=== PATIENT | male | born 1960 | race Caucasian/White ===

== ENCOUNTER 2019-05-13 20:25 | Emergency (ER) | payer OTHER ==
--- NOTE | 2019-05-13 21:01 | EDM.PDOC ---
ED HPI GENERAL MEDICAL PROBLEM - General Chief Complaint: Headache Stated Complaint: MIGRAINES Time Seen by Provider: 05/13/19 20:28 Source of Information: Reports: Patient History Limitations: Reports: No Limitations - History of Present Illness INITIAL COMMENTS - FREE TEXT/NARRATIVE: Hx of cluster headaches Coming off his narcotic medications His neurologist recommends high flow O2 He took two sumatriptan today and imitrex Onset: Today Headache Pain Score (Numeric/FACES): 1 - Related Data Allergies Allergy/AdvReac Type Severity Reaction Status Date / Time No Known Allergies Allergy Verified 05/13/19 20:54 Home Meds: Home Meds Aspirin 1 tab PO DAILY 05/13/19 [History] Cyclobenzaprine [Flexeril] 1 tab PO Q8H PRN 05/13/19 [History] Docusate Sodium [Colace] 1 tab PO DAILY 05/13/19 [History] Gabapentin [Neurontin] 3 tab PO BID 05/13/19 [History] Hydrocodone/Acetaminophen [Hydrocodon-Acetaminophen 5-325] 1 tab PO Q4H PRN 01/26 [History] Lisinopril 1 tab PO BID 05/13/19 [History] Omeprazole 1 tab PO DAILY 05/13/19 [History] Tamsulosin [Flomax] 1 tab PO DAILY 05/13/19 [History] Zolpidem Tartrate [Ambien] 1 tab PO BEDTIME PRN 05/13/19 [History] atorvaSTATin [Lipitor] 1 tab PO DAILY 05/13/19 [History] hydroCHLOROthiazide [Hydrochlorothiazide] 1 tab PO DAILY 05/13/19 [History] predniSONE [Prednisone] 1 tab PO ASDIRECTED 05/13/19 [History] ED ROS GENERAL - Review of Systems Review Of Systems: ROS reveals no pertinent complaints other than HPI. Constitutional: Reports: No Symptoms Respiratory: Reports: No Symptoms Cardiovascular: Reports: No Symptoms Musculoskeletal: Reports: No Symptoms Skin: Reports: No Symptoms Neurological: Reports: Headache Psychiatric: Reports: No Symptoms ED EXAM, GENERAL - Physical Exam Exam: See Below Exam Limited By: No Limitations General Appearance: Alert, WD/WN, No Apparent Distress Eye Exam: Bilateral Eye: EOMI, PERRL Throat/Mouth: Normal Inspection, Normal Lips, Normal Oropharynx Head: Atraumatic, Normocephalic Neck: Normal Inspection, Supple, Non-Tender Respiratory/Chest: No Respiratory Distress, Lungs Clear Cardiovascular: Regular Rate, Rhythm GI/Abdominal: Normal Bowel Sounds, Soft, Non-Tender Neurological: Alert, Oriented, CN II-XII Intact, Normal Cognition, Normal Gait Psychiatric: Normal Affect, Normal Mood Skin Exam: Warm, Dry, Intact, Normal Color Course - Vital Signs Last Recorded V/S: Last Vital Signs Temp 97.5 F 05/13/19 21:06 Pulse 74 05/13/19 21:06 Resp 20 05/13/19 21:06 BP 124/81 05/13/19 21:06 Pulse Ox 93 L 05/13/19 21:06 - Re-Assessments/Exams Free Text/Narrative Re-Assessment/Exam: 05/13/19 21:45 after 30 min high flow oxygen, his headache has resolved. Requesting discharge Departure - Departure Time of Disposition: 21:31 Disposition: Home, Self-Care 01 Condition: Good Clinical Impression: Cluster headache - Discharge Information *PRESCRIPTION DRUG MONITORING PROGRAM REVIEWED*: Not Applicable *COPY OF PRESCRIPTION DRUG MONITORING REPORT IN PATIENT CLARITA: Not Applicable Instructions: Cluster Headache Referrals: PCP,None [Primary Care Provider] - Forms: ED Department Discharge Additional Instructions: Continue to stay hydrated take your medications as directed Follow up with your primary/neurologist this week Return with worsening of symptoms Call with questions. - Problem List & Annotations (1) Cluster headache SNOMED Code(s): 170592731 Code(s): G44.009 - CLUSTER HEADACHE SYNDROME, UNSPECIFIED, NOT INTRACTABLE Status: Acute Priority: Low Qualifiers: Headache chronicity pattern: unspecified pattern Intractability: not intractable Qualified Code(s): G44.009 - Cluster headache syndrome, unspecified, not intractable
== END 2019-05-13 21:40 | disposition home or self-care (01) ==
LOC: JP.ED 20:25
DX: G44.009 Cluster headache syndrome, unspecified, not intractable (principal); Z79.82 Long term (current) use of aspirin; Z79.899 Other long term (current) drug therapy
CPT/HCPCS: 99283

== ENCOUNTER 2019-05-22 13:32 | Emergency (ER) | payer OTHER ==
[2019-05-22] MEDS ORDERED: Metoclopramide 10 MG/2 ML SDV IVPUSH ONE (14:35)
[2019-05-22] MEDS ORDERED: Ketorolac 30 MG/ML SDV IVPUSH ONE (14:38)
[2019-05-22] MEDS ORDERED: methylPREDNISolone Sodium Succinate 125 MG/2 ML SDV IVPUSH ONE (15:22)
--- NOTE | 2019-05-22 15:24 | EDM.PDOC ---
ED HPI GENERAL MEDICAL PROBLEM - General Chief Complaint: Headache Stated Complaint: CLUSTER MIGRAINES Time Seen by Provider: 05/22/19 15:00 Source of Information: Reports: Patient, Family History Limitations: Reports: No Limitations - History of Present Illness INITIAL COMMENTS - FREE TEXT/NARRATIVE: 59-year-old male with chronic cluster migraine headaches presents with a continuing cycle of several headaches daily. He was in the emergency room 4 days ago and had high flow oxygen which resolved the headache, however he's continuing to use Imitrex several times a day and is wondering if he can get treatment to try to break the cycle. Associated Symptoms: Reports: Other (Some nausea no vomiting) Headache Pain Score (Numeric/FACES): 2 - Related Data Allergies Allergy/AdvReac Type Severity Reaction Status Date / Time No Known Allergies Allergy Verified 05/13/19 20:54 Home Meds: Home Meds Aspirin 1 tab PO DAILY 05/13/19 [History] Cyclobenzaprine [Flexeril] 1 tab PO Q8H PRN 05/13/19 [History] Docusate Sodium [Colace] 1 tab PO DAILY 05/13/19 [History] Gabapentin [Neurontin] 3 tab PO BID 05/13/19 [History] Hydrocodone/Acetaminophen [Hydrocodon-Acetaminophen 5-325] 1 tab PO Q4H PRN 01/26 [History] Lisinopril 1 tab PO BID 05/13/19 [History] Omeprazole 1 tab PO DAILY 05/13/19 [History] Tamsulosin [Flomax] 1 tab PO DAILY 05/13/19 [History] Zolpidem Tartrate [Ambien] 1 tab PO BEDTIME PRN 05/13/19 [History] atorvaSTATin [Lipitor] 1 tab PO DAILY 05/13/19 [History] hydroCHLOROthiazide [Hydrochlorothiazide] 1 tab PO DAILY 05/13/19 [History] SUMAtriptan 100 mg PO BID 05/22/19 [History] Past Medical History HEENT History: Reports: Impaired Vision Cardiovascular History: Reports: High Cholesterol, Hypertension Respiratory History: Reports: None Gastrointestinal History: Reports: PUD Genitourinary History: Reports: BPH, Renal Calculus Musculoskeletal History: Reports: Back Pain, Chronic Neurological History: Reports: Migraines Psychiatric History: Reports: None Endocrine/Metabolic History: Reports: None Hematologic History: Reports: None Immunologic History: Reports: None Oncologic (Cancer) History: Reports: None Dermatologic History: Reports: Psoriasis - Infectious Disease History Infectious Disease History: Reports: Chicken Pox - Past Surgical History HEENT Surgical History: Reports: None Cardiovascular Surgical History: Reports: None Respiratory Surgical History: Reports: None GI Surgical History: Reports: None Male Surgical History: Reports: Vasectomy Endocrine Surgical History: Reports: None Neurological Surgical History: Reports: C-Spine, Lumbar Spine Musculoskeletal Surgical History: Reports: Hip Replacement, Other (See Below) Other Musculoskeletal Surgeries/Procedures:: l4 l5 fussion 1 month ago, c5c6 fussion Dermatological Surgical History: Reports: None Social & Family History - Family History Family Medical History: Noncontributory - Tobacco Use Smoking Status *Q: Light Tobacco Smoker Years of Tobacco use: 20 Packs/Tins Daily: 0 Used Tobacco, but Quit: No Second Hand Smoke Exposure: No - Caffeine Use Caffeine Use: Reports: Coffee, Energy Drinks, Soda, Tea - Recreational Drug Use Recreational Drug Use: No ED ROS GENERAL - Review of Systems Review Of Systems: See Below Constitutional: Denies: Fever, Chills HEENT: Reports: Other (Some photophobia). Denies: Vision Change Skin: Reports: No Symptoms Neurological: Reports: Headache (Right-sided) - Physical Exam Exam: See Below Exam Limited By: No Limitations General Appearance: Alert, No Apparent Distress Eye Exam: Bilateral Eye: PERRL Head Exam: Atraumatic Respiratory/Chest: No Respiratory Distress Neuro Exam (Abbreviated): Alert, Oriented Psychiatric: Normal Affect, Normal Mood Skin Exam: Warm, Dry Course - Vital Signs Last Recorded V/S: Last Vital Signs Temp 96.8 F 05/22/19 14:39 Pulse 67 05/22/19 15:32 Resp 16 05/22/19 15:32 BP 135/84 05/22/19 15:32 Pulse Ox 99 05/22/19 15:32 - Orders/Labs/Meds Orders: Active Orders 24 hr Category Date Time Status Oxygen Therapy, ED [RC] ASDIRECTED Care 05/22/19 14:38 Active Meds: Medications Discontinued Medications Generic Name Dose Route Start Last Admin Trade Name Freq PRN Reason Stop Dose Admin Ketorolac Tromethamine 30 mg 05/22/19 14:38 05/22/19 14:56 Toradol IVPUSH 05/22/19 14:39 30 mg ONETIME ONE Administration Methylprednisolone Sodium Succinate 125 mg 05/22/19 15:22 05/22/19 15:30 Solu-Medrol IVPUSH 05/22/19 15:23 125 mg ONETIME ONE Administration Metoclopramide HCl 5 mg 05/22/19 14:35 05/22/19 14:58 Reglan IVPUSH 05/22/19 14:36 5 mg ONETIME ONE Administration - Re-Assessments/Exams Free Text/Narrative Re-Assessment/Exam: 05/22/19 15:31 Patient was given high flow oxygen for 30 minutes and also given 30 mg of IV Toradol, 5 mg of IV Reglan which resolved his pain. He was then given 125 mg of IV Solu-Medrol. He can continue his current medications and return if not improving over the next several days. Departure - Departure Time of Disposition: 15:56 Disposition: Home, Self-Care 01 Condition: Good Clinical Impression: Cluster headache Qualifiers: Headache chronicity pattern: chronic headache Intractability: not intractable Qualified Code(s): G44.029 - Chronic cluster headache, not intractable - Discharge Information Instructions: Cluster Headache, [id number] Referrals: PCP,None [Primary Care Provider] - Forms: ED Department Discharge Care Plan Goals: Rest today, increase activity as tolerated and consider rechecking in 2-3 days for further treatment if not improving. - My Orders Last 24 Hours: My Active Orders 05/22/19 14:38 Oxygen Therapy, ED [RC] ASDIRECTED - Assessment/Plan Last 24 Hours: My Active Orders 05/22/19 14:38 Oxygen Therapy, ED [RC] ASDIRECTED
== END 2019-05-22 15:56 | disposition home or self-care (01) ==
LOC: JP.ED 13:32
DX: G44.029 Chronic cluster headache, not intractable (principal); I10 Essential (primary) hypertension; E78.00 Pure hypercholesterolemia, unspecified; Z98.52 Vasectomy status; Z79.82 Long term (current) use of aspirin; Z79.899 Other long term (current) drug therapy; F17.200 Nicotine dependence, unspecified, uncomplicated
CPT/HCPCS: 96374; 96375; 99283; J1885; J2765; J2930